=== PATIENT | female | born 1970 | race African-American/Black ===

== ENCOUNTER 2018-01-31 14:10 | Emergency (ER) | payer OTHER ==
[~2018-01-31] VITALS: Ht 162.6 cm; Wt 87.5 kg
[2018-01-31 15:13] VITALS: BP 141/78
== END 2018-01-31 15:25 | disposition home or self-care (01) ==
LOC: EME 14:10
DX: L02.821 Furuncle of head [any part, except face] (principal); Z86.39 Personal history of other endocrine, nutritional and metabolic disease; R11.0 Nausea; M54.2 Cervicalgia; R42 Dizziness and giddiness; Z85.3 Personal history of malignant neoplasm of breast; Z90.12 Acquired absence of left breast and nipple; Z90.49 Acquired absence of other specified parts of digestive tract
CPT/HCPCS: 99281; 99284